=== PATIENT | male | born 1955 | race Asian ===

== ENCOUNTER 2018-06-24 16:54 | Emergency (ER) | payer OTHER ==
[~2018-06-24] VITALS: Ht 182.9 cm; Wt 90.7 kg
[~2018-06-24 16:54] MED LIST: ACET-689 PO; AMANTADINE100 M1 OR; AMLO2.5T PO; ASPIRIN ADULT L81 MG PO; ATIVAN2 M1 PO; BENADRYL 50M50 MG/ML IJ; BENZTROPINE2 MG PO; DIPH50CA30 PO; DIVA500T2 PO; FURO40TA93 PO; HALO10TA5 PO; LACTSYP31 PO; LEVO0.1224 PO; LEXAPRO20 MG PO; LORA2INJ21 IM; METO50TA27 PO; MICROZIDE12.5 MG PO; NITROSTAT0.4 MG SL; OLAN10INJ IM; OMEPRAZOLE DR PO; OMEPRAZOLE20 M1 PO; OXCARBAZEPIN300 MG OR; PHENERGAN25 MG PO; POTA20TA4 PO; PROM25TA52 PO; PROTONIX20 MG PO; PSYL0.52C PO; QUET300T PO; RISP2TAB2 PO; RISP50IN IM; RISPERDAL3 MG PO; SEROQUEL100 MG OR; SEROQUEL100 MG PO; SEROQUEL200 MG PO; SEROQUEL300 MG PO; SEROQUEL50 MG PO; TAMS0.4C PO; TRAM50TA PO; TRAZ100T PO; TYLENOL/COD PO; VALPROIC A250 MG/5 M OR; VENL37.511 PO; VENLAFAXINE150 M1 PO; WATESOL21 IR; ZIPR20IN IM; ZIPR80CA PO; [UNRECOGNIZED DRUG - OTHER] OR
[2018-06-24 17:23] LABS: PLATELET COUNT 231 K/uL (142-355)
[2018-06-24 17:37] LABS: POTASSIUM 4.2 mmol/L (3.6-5.2)
[2018-06-24 19:37] VITALS: BP 134/88; TEMP 97.7
[2018-06-24] MEDS ORDERED: LEVO0.1519 PO (20:05)
[2018-06-24] MEDS ORDERED: VALPROIC A250 MG/5 M PO (20:07)
[2018-06-24] MEDS ORDERED: DEPAKENE250 MG/5 M PO (20:11)
[2018-06-24] MEDS ORDERED: BENZ1TAB43 PO (20:13)
[2018-06-24] MEDS ORDERED: OXTELLAR XR300 MG PO (20:15)
[2018-06-24] MEDS ORDERED: ALBUSOL INH (20:18)
[2018-06-24] MEDS ORDERED: TYLENOL325 MG PO (20:21)
[2018-06-24] MEDS ORDERED: EMOLOIN22 TOP (20:22)
[2018-06-24] MEDS ORDERED: INSUINJ20 SC (20:22)
[2018-06-24] MEDS ORDERED: MYLANTA MAXIMUM1 SUS PO (20:23)
[2018-06-24] MEDS ORDERED: MILK OF MAGNESI1 SU1 PO (20:23)
[2018-07-08] MEDS ORDERED: LORA2INJ21 IM (09:40)
[2018-07-08] MEDS ORDERED: ATOR20TA2 PO (09:40)
[2018-07-08] MEDS ORDERED: RISPERDAL3 MG PO (09:40)
[2018-07-08] MEDS ORDERED: ASPIRIN ADULT L81 MG PO (09:40)
[2018-07-08] MEDS ORDERED: RISP50IN IM (09:40)
[2018-07-08] MEDS ORDERED: INSUINJ20 SC (09:40)
[2018-07-08] MEDS ORDERED: QUET300T PO (09:40)
[2018-07-08] MEDS ORDERED: OXTELLAR XR300 MG PO (09:40)
[2018-07-08] MEDS ORDERED: VENL37.511 PO (09:40)
[2018-07-08] MEDS ORDERED: LEVO0.1519 PO (09:40)
[2018-07-08] MEDS ORDERED: BENZ1TAB43 PO (09:40)
[2018-07-08] MEDS ORDERED: ALBUSOL INH (09:40)
[2018-07-08] MEDS ORDERED: QUET100T2 PO (09:40)
[2018-07-08] MEDS ORDERED: AMANTADINE100 M1 OR (09:40)
[2018-07-08] MEDS ORDERED: METO50TA27 PO (09:40)
[2018-07-08] MEDS ORDERED: 904272561 PO (09:40)
[2018-07-08] MEDS ORDERED: FURO40TA93 PO (09:40)
[2018-07-08] MEDS ORDERED: HALO5INJ3 IM (09:40)
[2018-07-08] MEDS ORDERED: PSYL0.52C PO (09:40)
[2018-07-08] MEDS ORDERED: TRAM50TA PO (09:40)
[2018-07-08] MEDS ORDERED: ZIPR80CA PO (09:40)
[2018-07-08] MEDS ORDERED: VALPROIC ACID10 ML PO ×2 (09:40)
[2018-07-08] MEDS ORDERED: PROTONIX20 MG PO (09:40)
== END 2018-06-24 19:37 | disposition other institution (70) ==
LOC: ED 16:54
PROVIDERS: Family Medicine
DX: F20.89 Other schizophrenia (principal); F60.3 Borderline personality disorder; Z04.6 Encounter for general psychiatric examination, requested by authority
CPT/HCPCS: 36415; 80053; 81000; 85027; 93005; 99285

== ENCOUNTER 2018-12-26 22:20 | Emergency (ER) | payer OTHER ==
[~2018-12-26] VITALS: Ht 180.3 cm; Wt 103.4 kg
[2018-12-26 22:20] VITALS: BP 155/93; TEMP 97.5
[~2018-12-26 22:20] MED LIST changes: +904272561 PO; +ALBUSOL INH; +ATOR20TA2 PO; +BENZ1TAB43 PO; +DEPAKENE250 MG/5 M PO; +EMOLOIN22 TOP; +HALO5INJ3 IM; +INSUINJ20 SC; +LEVO0.1519 PO; +MILK OF MAGNESI1 SU1 PO; +MYLANTA MAXIMUM1 SUS PO; +OXTELLAR XR300 MG PO; +QUET100T2 PO; +TYLENOL325 MG PO; +VALPROIC A250 MG/5 M PO; +VALPROIC ACID10 ML PO
[2018-12-26] MEDS ORDERED: RISPERDAL4 MG PO (23:46)
[2018-12-26] MEDS ORDERED: RISP50IN IM (23:47)
[2018-12-26] MEDS ORDERED: VENLAFAXINE150 M1 PO (23:49)
[2018-12-26] MEDS ORDERED: POTASSIUM CHLO20 ME1 PO (23:55)
== END 2018-12-26 23:01 | disposition other institution (70) ==
LOC: ED 22:23
DX: F03.90 Unspecified dementia, unspecified severity, without behavioral disturbance, psychotic disturbance, mood disturbance, and anxiety (principal); F20.89 Other schizophrenia; Z04.6 Encounter for general psychiatric examination, requested by authority
CPT/HCPCS: 93005; 99281; 99282

== ENCOUNTER 2019-08-04 22:51 | Emergency (ER) | payer OTHER ==
[~2019-08-04] VITALS: Ht 180.3 cm; Wt 95.3 kg
[2019-08-04 22:51] VITALS: BP 129/90
[~2019-08-04 22:51] MED LIST changes: +ACCUCHECKS; +AMANTADINE100 M1 PO; +BAYER CHEWABLE81 MG PO; +IPRATROPIUM/ INH; +LEVO-T150 MCG PO; +LIPITOR20 MG PO; +OMEPRAZOLE DR40 MG PO; +OXCARBAZEPIN300 MG PO; +POTASSIUM CHLO20 ME1 PO; +RISPERDAL4 MG PO; +VALP250S3 PO; +VENLAFAXINE H37.5 MG PO
[2019-08-04 23:52] LABS: PLATELET COUNT 224 K/uL (142-355)
[2019-08-05 00:38] VITALS: TEMP 97.9
[2019-08-05] MEDS ORDERED: OXCARBAZEPIN300 MG PO (02:54)
[2019-08-05] MEDS ORDERED: AMANTADINE100 M1 PO (02:56)
[2019-08-05] MEDS ORDERED: RISP50IN IM (02:58)
[2019-08-05] MEDS ORDERED: ASPIRIN 81 LOW81 MG PO (02:59)
[2019-08-05] MEDS ORDERED: LIPITOR20 MG PO ×2 (03:00→10:32)
[2019-08-05] MEDS ORDERED: EUTHYROX150 MCG PO (03:02)
[2019-08-05] MEDS ORDERED: FIBER LAXATIV0.52 GM PO (03:03)
[2019-08-05] MEDS ORDERED: KAPSPARGO SPRIN50 MG PO (03:05)
[2019-08-05] MEDS ORDERED: OMEP40CA PO (03:06)
[2019-08-05] MEDS ORDERED: VENLAFAXINE H37.5 M2 PO (03:08)
[2019-08-05] MEDS ORDERED: FURO20TA67 PO (03:09)
[2019-08-05] MEDS ORDERED: K-TAB20 MEQ PO (03:11)
[2019-08-05] MEDS ORDERED: ZIPR80CA PO (03:12)
[2019-08-05] MEDS ORDERED: BENZ1TAB43 PO (03:13)
[2019-08-05] MEDS ORDERED: DEPAKENE250 MG/5 M PO (03:16)
[2019-08-05] MEDS ORDERED: [UNRECOGNIZED DRUG - OTHER] PO (03:18)
[2019-08-05] MEDS ORDERED: SEROQUEL200 MG PO (03:20)
[2019-08-05] MEDS ORDERED: SEROQUEL300 MG PO (03:21)
[2019-08-05] MEDS ORDERED: TYLENOL325 MG PO (03:22)
[2019-08-05] MEDS ORDERED: ACCU CHECK (03:25)
[2019-08-05] MEDS ORDERED: IPRAAER INH (03:27)
[2019-08-05] MEDS ORDERED: VENLAFAXINE H37.5 MG PO (10:21)
[2019-08-05] MEDS ORDERED: FINGERSTIX (10:24)
[2019-08-05] MEDS ORDERED: FURO40TA93 PO (10:26)
[2019-08-05] MEDS ORDERED: VALPROIC ACID10 ML PO (10:29)
[2019-08-05] MEDS ORDERED: AMANTADINE100 MG PO (10:35)
[2019-08-05] MEDS ORDERED: OLANZAPINE20 M1 PO (10:40)
[2019-08-05] MEDS ORDERED: EQ OMEPRAZOLE O20 MG PO (10:42)
[2019-08-05] MEDS ORDERED: THERA M PLUS PO (10:44)
[2019-08-05] MEDS ORDERED: LACTSYP31 PO (10:45)
[2019-08-05] MEDS ORDERED: DEXT40GE2 PO (10:47)
== END 2019-08-05 00:54 | disposition other institution (70) ==
LOC: ED 22:51
PROVIDERS: Family Medicine
DX: F01.51 Vascular dementia, unspecified severity, with behavioral disturbance (principal); F20.89 Other schizophrenia; Z04.6 Encounter for general psychiatric examination, requested by authority
CPT/HCPCS: 36415; 80053; 85027; 93005; 99285

== ENCOUNTER 2019-12-19 21:20 | Emergency (ER) | payer OTHER ==
[~2019-12-19] VITALS: Ht 180.3 cm; Wt 95.7 kg
[~2019-12-19 21:20] MED LIST changes: +ACCU CHECK; +AMANTADINE100 MG PO; +ASPIRIN 81 LOW81 MG PO; +DEXT40GE2 PO; +EQ OMEPRAZOLE O20 MG PO; +ESCI10TA PO; +EUTHYROX150 MCG PO; +FIBER LAXATIV0.52 GM PO; +FINGERSTIX; +FURO20TA67 PO; +HALO50IN4 IM; +IPRAAER INH; +K-TAB20 MEQ PO; +KAPSPARGO SPRIN50 MG PO; +OLANZAPINE20 M1 PO; +OMEP40CA PO; +THERA M PLUS PO; +VENLAFAXINE H37.5 M2 PO; +[UNRECOGNIZED DRUG - OTHER] PO
[2019-12-19 22:24] LABS: PLATELET COUNT 228 K/uL (142-355)
[2019-12-19 22:41] LABS: POTASSIUM 4.3 mmol/L (3.6-5.2)
[2019-12-19 23:25] VITALS: BP 151/97; TEMP 98
[2019-12-20] MEDS ORDERED: KP FOLIC ACID1 MG PO (01:02)
== END 2019-12-19 23:25 | disposition other institution (70) ==
LOC: ED 21:20
PROVIDERS: Emergency Medicine
DX: F01.51 Vascular dementia, unspecified severity, with behavioral disturbance (principal); R00.1 Bradycardia, unspecified; Z04.6 Encounter for general psychiatric examination, requested by authority
CPT/HCPCS: 80053; 81000; 85027; 93005; 99283

== ENCOUNTER 2020-05-20 18:38 | Emergency (ER) | payer OTHER ==
[~2020-05-20] VITALS: Ht 180.3 cm; Wt 99.3 kg
[~2020-05-20 18:38] MED LIST changes: +DOCU100C10 PO; +KP FOLIC ACID1 MG PO; +VENL37.54 PO
[2020-05-20 19:19] LABS: PLATELET COUNT 256 K/uL (142-355)
[2020-05-20 19:31] LABS: POTASSIUM 4.4 mmol/L (3.6-5.2)
[2020-05-20 20:10] VITALS: BP 154/91; TEMP 98.5
[2020-05-20] MEDS ORDERED: FUROSEMIDE80 MG PO (22:12)
[2020-05-20] MEDS ORDERED: GLYCOLAX3350 NF PO (22:16)
[2020-05-20] MEDS ORDERED: THERA M PLUS PO (22:18)
[2020-05-20] MEDS ORDERED: VITAMIN C PO (22:20)
[2020-05-20] MEDS ORDERED: VITAMIN C500 M5 PO (22:24)
[2020-05-20] MEDS ORDERED: OLANZAPINE10 M2 PO (22:28)
[2020-05-20] MEDS ORDERED: IPRAAER INH (22:31)
[2020-05-20] MEDS ORDERED: ZIPR20IN IM (22:35)
[2020-05-20] MEDS ORDERED: OLAN10INJ IM (22:48)
[2020-05-20] MEDS ORDERED: [UNRECOGNIZED DRUG - OTHER] (22:52)
[2020-05-20] MEDS ORDERED: TIZA4TAB5 PO (22:54)
[2020-05-20] MEDS ORDERED: DEPAKOTE DR PO (22:55)
== END 2020-05-20 20:10 | disposition other institution (70) ==
LOC: ED 18:50
PROVIDERS: Family Medicine
DX: F01.51 Vascular dementia, unspecified severity, with behavioral disturbance (principal); Z11.59 Encounter for screening for other viral diseases; M54.89 Other dorsalgia; Z04.6 Encounter for general psychiatric examination, requested by authority
CPT/HCPCS: 36415; 80053; 81000; 85027; 87086; 87088; 87635; 93005; 99283; U0002

== ENCOUNTER 2020-06-20 20:25 | Emergency (ER) | payer OTHER ==
[~2020-06-20] VITALS: Ht 182.9 cm; Wt 99.3 kg
[2020-06-20 20:25] VITALS: BP 149/94; TEMP 99
[~2020-06-20 20:25] MED LIST changes: +DEPAKOTE DR PO; +DIVALPROEX500 MG PO; +FUROSEMIDE80 MG PO; +GLYCOLAX3350 NF PO; +HALO5TAB10 PO; +LEVO0.0723 PO; +OLANZAPINE10 M2 PO; +OLANZAPINE10 MG PO; +TIZA4TAB5 PO; +VITAMIN C PO; +VITAMIN C500 M5 PO; +[UNRECOGNIZED DRUG - OTHER]
[2020-06-20 21:16] LABS: PLATELET COUNT 211 K/uL (142-355)
[2020-06-20 21:21] LABS: POTASSIUM 3.8 mmol/L (3.6-5.2)
[2020-06-21] MEDS ORDERED: AMANTADINE100 M1 PO (04:43)
[2020-08-05] MEDS ORDERED: TRAZ50TA36 PO (09:38)
[2020-08-05] MEDS ORDERED: SCOP1.5D TD (09:39)
[2020-08-05] MEDS ORDERED: RISP50IN IM (09:40)
[2020-08-05] MEDS ORDERED: MIRALAX 17GM PAK PO (09:40)
[2020-08-05] MEDS ORDERED: INDERAL 10MG TAB PO (09:40)
[2020-08-05] MEDS ORDERED: PANTOPRAZOLE 40MG TA PO (09:41)
[2020-08-05] MEDS ORDERED: METO50TA27 PO (09:41)
[2020-08-05] MEDS ORDERED: LEVO0.0723 PO (09:42)
[2020-08-05] MEDS ORDERED: IPRAAER INH (09:42)
[2020-08-05] MEDS ORDERED: HALO50IN4 IM (09:43)
[2020-08-05] MEDS ORDERED: FURO40TA93 PO ×2 (09:43→09:44)
[2020-08-05] MEDS ORDERED: FOLI1TAB26 PO (09:44)
[2020-08-05] MEDS ORDERED: DOCU100C10 PO (09:44)
[2020-08-05] MEDS ORDERED: DIVALPROEX500 MG PO ×2 (09:45)
[2020-08-05] MEDS ORDERED: CLOZ100T PO (09:46)
[2020-08-05] MEDS ORDERED: ATOR20TA2 PO (09:46)
== END 2020-06-20 21:20 | disposition still patient (30) ==
LOC: ED 20:25
PROVIDERS: Hospitalist
DX: F03.91 Unspecified dementia, unspecified severity, with behavioral disturbance (principal); F25.8 Other schizoaffective disorders; Z04.6 Encounter for general psychiatric examination, requested by authority
CPT/HCPCS: 36415; 80053; 80164; 81000; 85027; 93005; 99283; 99285; J1200; J1630; J2060